=== PATIENT | female | born 1960 | race Caucasian/White ===

== ENCOUNTER → 2023-10-26 07:19 | Outpatient (REF) | payer OTHER, SELFPAY | LOC: RAD 07:19 | PROVIDERS: ATTENDING PHYSICIAN Nurse Practitioner Family | DX: R10.31 Right lower quadrant pain (principal) | CPT/HCPCS: 76882 ==

== ENCOUNTER → 2023-11-23 12:27 | Outpatient (REF) | payer OTHER, SELFPAY ==
[2023-11-23 12:40] VITALS: BP 123/76; BP_SYST 60
[2023-11-23 14:21] VITALS: BP 126/78; BP_SYST 71
[2023-11-23 16:43] LABS: Body Fluid WBC 125 /CUMM
[2023-11-23 17:49] LABS: Body Fluid Granulocytes 12 %; Body Fluid Lymphocytes 62 %; Body Fluid Macrophages 26 %
[2023-11-23 17:51] LABS: Body Fluid Second Tech EYM
== END ==
LOC: RADI 12:27
PROVIDERS: ATTENDING PHYSICIAN Surgery
DX: L02.214 Cutaneous abscess of groin (principal)
CPT/HCPCS: 88173; 88305; 10160; 76942; 87015; 87070; 87205; 88341; 88342; 89051

== ENCOUNTER → 2024-05-16 16:11 | Outpatient (REF) | payer OTHER, SELFPAY | LOC: RAD 16:11 | PROVIDERS: ATTENDING PHYSICIAN Nurse Practitioner Family | DX: M54.2 Cervicalgia (principal) | CPT/HCPCS: 72050 ==